=== PATIENT | male | born 1970 | race Caucasian/White ===

== ENCOUNTER 2023-02-13 10:14 | Outpatient (CLI) | payer OTHER, BC, MEDICAID, SELFPAY ==
[2023-02-13 11:06] LABS: Basophils # 0.1 10^3/uL (0.0-0.1); Basophils % 1.2 %; Eosinophils # 0.1 10^3/uL (0.0-0.8); Hematocrit 47.4 % (37-53); Lymphocytes # 2.2 10^3/uL (0.8-4.8); Lymphocytes % 20.2 %; Mean Corpuscular HGB Conc 31.9 g/dL (30-55); Mean Corpuscular Hemoglobin 24.6 pg (27-33); Mean Corpuscular Volume 77.1 fl (82-101); Mean Platelet Volume 9.2 fL (7.4-10.4); Monocytes # 0.9 10^3/uL (0.2-0.9); Monocytes % 7.8 %; Neutrophils # 7.57 10^3/uL (1.8-7.7); Neutrophils % 68.5 %; Nucleated Red Blood Cells % 0 %; Platelet Count 303 10^3/cmm (157-399); Red Blood Count 6.15 10^6/uL (3.85-5.65); Red Cell Distribution Width 14.5 % (12.1-15.1); White Blood Count 11.04 10^3/uL (3.29-11.43)
[2023-02-13 12:12] LABS: Alanine Aminotransferase 29 U/L (0-41); Albumin Level 4.4 g/dL (3.5-5.2); Alkaline Phosphatase 109 U/L (40-130); Anion Gap 15.2 (5-19); Aspartate Amino Transferase 18 U/L (0-40); Blood Urea Nitrogen 14 mg/dL (6-20); Calcium 9.4 mg/dL (8.5-10.5); Carbon Dioxide 26 mmol/L (22-29); Chloride 96 mmol/L (98-107); Globulin 2.3 g/dL (1.3-4.6); Glomerular Filtration Rate 119.4 mL/min (90-130); Glucose 287 mg/dL (65-115); Osmolality Calculated 287 mOsm/kg (285-295); Potassium 4.2 mmol/L (3.5-5.1); Sodium 133 mmol/L (136-145); Thyroid Stimulating Hormone 1.69 uIU/mL (0.27-4.20); Total Bilirubin 0.4 mg/dL (0.15-1.2); Total Protein 6.7 g/dL (6.6-8.7); Vitamin B12 899 pg/mL (232-1245)
[2023-02-13 12:14] LABS: Folate Level < 20.0 ng/mL (4.5-32.2)
== END 2023-02-13 10:15 | disposition home or self-care (01) ==
PROVIDERS: PCP Family Medicine; Visit Provider Nurse Practitioner Family
DX: K14.5 Plicated tongue (principal); R53.83 Other fatigue; E78.2 Mixed hyperlipidemia
CPT/HCPCS: 36415; 80053; 82607; 82746; 84443; 85025

== ENCOUNTER 2023-02-15 12:46 | Emergency (ER) | payer OTHER, BC, MEDICAID, SELFPAY ==
[2023-02-15 12:52] VITALS: BP 175/99; PULSE 68; RESP 16; TEMP 36.6; O2SAT 99; BMI 39.3
[2023-02-15 12:55] VITALS: BP 151/89; PULSE 63; O2SAT 97
--- NOTE | 2023-02-15 12:59 | ED_ITS ---
HPI - Recheck/Abnormal Lab/Rx General: Chief Complaint: Recheck/Abnormal Lab/Rx Stated Complaint: high bs, blurred vision, weakness Time Seen by Provider: 02/15/23 12:51 History of Present Illness: Patient is a 52-year-old male that presents to the emergency department with complaints of hyperglycemia. Patient states he has been tracking his blood sugar over the last couple weeks due to hyperglycemia. At home his sugars have been in the 300s. Patient has follow-up scheduled on 02/23 but noted increased hyperglycemia with dizziness and intermittently blurred vision. No blurred vision at this time. Blood sugar was 263 on arrival Review of Systems General: Reports: 10 or more systems reviewed and unremarkable except in HPI and below Const: Denies: fever(s), chills, change in appetite, change in weight, fatigue or malaise Eyes: Reports: blurry vision; Denies: change in vision, eye discomfort, eye discharge or eye redness ENMT: Denies: throat pain, enlarged tonsils, odynophagia, hoarseness, ear or mastoid pain, ear discharge, change in hearing, tinnitus, nasal discharge, nasal congestion, post nasal drip or sinus pain Card: Denies: chest pain, palpitations, irregular heart rhythm, edema, dyspnea on exertion, orthopnea or leg pain with exertion Resp: Denies: dyspnea, productive cough, non-productive cough, wheezing, stridor or chest congestion GI: Denies: abdominal pain, nausea, vomiting, dysphagia, diarrhea, constipation, bloating, GI cramping or hematochezia : Denies: flank pain, dysuria, urinary frequency, urinary urgency, urinary hesitancy, oliguria or hematuria Musc: Denies: neck pain, back pain, extremity pain, joint pain, joint swelling, joint redness, joint warmth or muscle weakness Skin/Breast: Denies: rash, pruritus, erythema, photosensitivity or new lesions Neuro: Denies: headache(s), numbness in extremities, weakness in extremities, sensory changes, lack of coordination, difficulty walking, frequent falls, dizziness, confusion, Slurred speech present, difficulty communicating thoughts, seizure-like activity or involuntary movements Endo: Denies: polyuria, polydipsia or tired all the time [place]/Lymph: Denies: easy bruising or easy bleeding Physical Exam Const: COMMON NORMALS: no acute distress, patient oriented x3 and alert GENERAL APPEARANCE: cooperative ORIENTATION/CONSCIOUSNESS: Yes awake, Yes oriented to person, Yes oriented to place and Yes oriented to time HENMT: COMMON NORMALS: normocephalic and atraumatic HEAD & SCALP: normocephalic and atraumatic FACE & SINUS: normal facial exam MOUTH: Norm al oral and palatal mucosa present THROAT: posterior oropharynx normal Eye: COMMON NORMALS: Equal, round and reactive pupils present, EOMs intact bilaterally, conjunctivae normal and no scleral icterus GENERAL EYE: appearance normal, both eyes and all related structures ALIGNMENT: Yes alignment normal PERIORBITAL: periorbital findings normal CONJUNCTIVA: Yes conjunctivae normal PUPIL: Yes Equal, round and reactive pupils present Neck/C-Spine: COMMON NORMALS: full ROM GENERAL: Yes normal visual insp ection Lymph: LYMPHATIC: no lymphadenopathy noted Chest: COMMONS NORMALS: normal inspection of the chest Breast/axilla inspection: Yes no chest deformity, asymmetry, normal contours, no nodules, masses, tenderness Resp: COMMON NORMALS: normal respiratory effort, No retractions, No use of accessory muscles and clear to auscultation bilaterally EFFORT & INSPECTION: Yes able to speak in complete sentences and Yes symmetric chest movement AUSCULTATION: clear to auscultation bilaterally Cardio: COMMON NORMALS: regular rate, regular rhythm and Peripheral pulses 2+ throughout RATE: regular rate RHYTHM: regular rhythm PERIPHERAL PULSES: Peripheral pulses 2+ throughout GI: COMMON NORMALS: Normal to inspection, nondistended, normoactive bowel sounds present, Soft to palpation, non-tender and No hepatosplenomegaly present INSPECTION: Yes normal to inspection AUSCULTATION: Yes normoactive bowel sounds PALPATION: Yes Soft to palpation and Yes No hepatosplenomegaly present RECTAL EXAM: Yes deferred Extremity: COMMON NORMALS: normal to inspection GENERAL: Yes normal exam except as noted Neuro: COMMON NORMALS: patient oriented x3 SENSORIUM/ORIENTATION: Yes alert, Yes oriented to person, Yes oriented to place and Yes oriented to time CRANIAL NERVES: Yes CN normal except as noted Psych: COMMON NORMALS: mental status grossly normal, Normal thought process present, cooperative, activity/motor behavior normal, denies homicidal ideation and denies suicidal ideation THOUGHT PROCESS: Normal thought process present Skin: COMMON NORMALS: no rashes or lesions noted, no wounds and turgor normal GENERAL SKIN EXAM: no rashes or lesions noted and turgor normal Course 2 Vital Signs: Vital signs: Vital Signs Temperature 97.9 F 02/15/23 12:52 Pulse Rate 63 02/15/23 12:55 Respiratory Rate 16 02/15/23 12:52 Blood Pressure 151/89 02/15/23 12:55 Pulse Oximetry 97 02/15/23 12:55 Oxygen Delivery Me thod Room Air 02/15/23 12:55 MDM - Recheck/Abnormal Lab/Rx Medical Decision Making Patient was evaluated in the emergency department [place] due to hyperglycemia and intermittent blurred vision. Differential diagnosis includes hypoglycemia, dehydration, DKA. Patient underwent CT head for the 4-day intermittent history of blurred vision. No acut e findings. Patient underwent laboratory evaluation that included CBC, CMP and urinalysis. No ketones serum or in his urine. No leukocytosis, anemias, electrolyte abnormalities and glucose was 190. Advised patient to continue his current efforts to manage his blood sugar from lifestyle modifications. He needs to follow-up with his primary care doctor on the as planned Patient will be discharged after normal saline is infused. All questions answered Lab Data 02/15/23 13:10 02/15/23 13:[address] 02/15/23 13:[address]: 1[address] No CT evidence of acute intracranial pathology. 2. Additional findings, as above. Laboratory Results WBC 10.47 10^3/uL (3.29-11.43) 02/15/23 13:10 RBC 5.82 10^6/uL (3.85-5.65) H 02/15/23 13:10 Hgb 14.40 g/dL (11.27-16.99) 02/15/23 13:10 Hct 45.2 % (37-53) 02/15/23 13:10 MCV 77.7 fl (82-101) L 02/15/23 13:10 MCH 24.7 pg (27-33) L 02/15/23 13:10 MCHC 31.9 g/dL (30-55) 02/15/23 13:10 RDW 14.6 % (12.1-15.1) 02/15/23 13:10 Plt Count 296 10^3/cmm (157-399) 02/15/23 13:10 MPV 9.1 fL (7.4-10.4) 02/15/23 13:10 Neut % (Auto) 67.7 % 02/15/23 13:10 Lymph % (Auto) 22.8 % 02/15/23 13:10 [place] % (Auto) 6.7 % 02/15/23 13:10 Eos % (Auto) 1.1 % 02/15/23 13:10 Baso % (Auto) 0.8 % 02/15/23 13:10 Neut # (Auto) 7.09 10^3/uL (1.8-7.7) 02/15/23 13:10 Lymph # (Auto) 2.4 10^3/uL (0.8-4.8) 02/15/23 13:10 [place] # (Auto) 0.7 10^3/uL (0.2-0.9) 02/15/23 13:10 Eos # (Auto) 0.1 10^3/uL (0.0-0.8) 02/15/23 13:10 Baso # (Auto) 0.1 10^3/uL (0.0-0.1) 02/15/23 13:10 Nucleated RBC % (auto) 0 % 02/15/23 13:10 Nucleated RBCs # 0.0 /100WBC 02/15/23 13:10 Sodium 138 mmol/L (136-145) 02/15/23 13:10 Potassium 4.0 mmol/L (3.5-5.1) 02/15/23 13:10 Chloride 101 mmol/L (98-107) 02/15/23 13:10 Carbon Dioxide 28 mmol/L (22-29) 02/15/23 13:10 Anion Gap 13.0 (5-19) 02/15/23 13:10 BUN 13 mg/dL (6-20) 02/15/23 13:10 Creatinine 0.8 mg/dL (0.7-1.2) 02/15/23 13:10 GFR Calculation 102.3 mL/min (90-130) 02/15/23 13:10 Glucose 190 mg/dL (65-115) H 02/15/23 13:10 POC Glucose 262 mg/dL (70-110) H 02/15/23 12:58 Calculated Osmolality 291 mOsm/kg (285-295) 02/15/23 13:10 Calcium 9.3 mg/dL (8.5-10.5) 02/15/23 13:10 Total Bilirubin 0.4 mg/dL (0.15-1.2) 02/15/23 13:10 AST 20 U/L (0-40) 02/15/23 13:10 ALT 28 U/L (0-41) 02/15/23 13:10 Alkaline Phosphatase 108 U/L (40-130) 02/15/23 13:10 Total Protein 6.8 g/dL (6.6-8.7) 02/15/23 13:10 Albumin 4.2 g/dL (3.5-5.2) 02/15/23 13:10 Globulin 2.6 g/dL (1.3-4.6) 02/15/23 13:10 Urine Color Colorless (Yellow) 02/15/23 13:22 Urine Appearance Clear (CLEAR) 02/15/23 13:22 Urine pH 6 (5-7) 02/15/23 13:22 Ur Specific [place] 1.005 (1.005-1.030) 02/15/23 13:22 Urine Protein Neg (Negative) 02/15/23 13:22 Urine Glucose (UA) 1+ (Normal) H 02/15/23 13:22 Urine Ketones Negative (Negative) 02/15/23 13:22 Urine Blood Neg (Negative) 02/15/23 13:22 Urine Nitrate Negative (Negative) 02/15/23 13:22 Urine Bilirubin Neg (Negative) 02/15/23 13:22 Urine Urobilinogen Norm mg/dL (Negative) 02/15/23 13:22 Ur Leukocyte Esterase Negative (Negative) 02/15/23 13:22 Serum Ketones Negative (Negative) 02/15/23 13:10 All radiology interpretation(s) finalized by discharge Discharge Plan Discharge Patient Disposition: Home Clinical Impression: Acute hyperglycemia Condition: Stable Prescriptions: No Action lamotrigine 200 mg tablet 200 mg PO dextroamphetamine-amphetamine 25 mg capsule,extended release 24hr 25 mg PO citalopram 40 mg tablet 40 mg PO omeprazole 20 mg capsule,delayed release(DR/EC) 20 mg PO DAILY Discharge Orders: Discharge ED (Routine); Ordered 02/15/23 Ordered By: Luz Cartagena McTeer Referrals: Leigha Simpson DO [Primary Care Provider] - Discharge Diet: Advance as tolerated Discharge Activity: Resume usual activity Patient Instructions: Diabetic Ketoacidosis (DC), Diabetic Hyperglycemia (ED), Mediterranean Diet (DC), Diabetes and Exercise (ED), Pain Management Activity Restrictions/Additional Instructions: Please return to the emergency department for new concerning or worsening Keep all follow-up appointments Coding Level of Care Code ED 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
[2023-02-15 13:01] LABS: Glucose Point of Care 262 mg/dL (70-110)
--- NOTE | 2023-02-15 13:01 | CTR_ITS ---
PROCEDURE INFORMATION: Exam: CT Head Without Contrast Exam date and time: 02/15/2023 1:37 PM Age: 52 years old Clinical indication: Other: Blurred vision TECHNIQUE: Imaging protocol: Computed tomography of the head without contrast. Axial, coronal and sagittal reformatted images were created and reviewed. Radiation optimization: All CT scans at this facility use at least one of these dose optimization techniques: automated exposure control; mA and/or kV adjustment per patient size (includes targeted exams where dose is matched to clinical indication); or iterative reconstruction. REPORTING DATA: Count of CT and Cardiac NM exams in prior 12 months: This patient has received 0 known CTs and 0 known cardiac nuclear medicine studies in the 12 months prior to the current study. COMPARISON: No relevant prior studies available. RADIATION DOSE METRICS: Total DLP (mGy-cm): 1052.18 FINDINGS: Brain: Subtle, patchy areas of hypoattenuation in the periventricular and subcortical white matter, nonspecific but suggestive of mild chronic small vessel ischemic disease. No CT evidence of acute intracranial hemorrhage or acute territorial infarction. No significant mass effect or midline shift. Basal cisterns patent. Cerebral ventricles: Prominence of the cortical sulci, cisterns and ventricular system, consistent with cerebral and cerebellar volume loss. Paranasal sinuses: Unremarkable. No fluid levels. Mastoid air cells: Grossly unremarkable. Bones/joints: No acute osseous abnormality. Soft tissues: Grossly unremarkable. CT/CT head wo con* [id number] IMPRESSION: 1. No CT evidence of acute intracranial pathology. 2. Additional findings, as above.
[2023-02-15 13:30] LABS: Add Urine Microscopic? NO; Charge for UA Resulting for Rev
[2023-02-15] MEDS: sodium chloride 0.9% 1,000 ML 999 ML IV ×2 (13:35→14:26)
[2023-02-15 13:36] LABS: Bilirubin Urine Neg (Negative); Blood Urine Neg (Negative); Glucose Urine UA 1+ (Normal); Ketones Urine Negative (Negative); Leukocyte Esterase Urine Negative (Negative); Nitrate Urine Negative (Negative); Protein Urine Neg (Negative); Specific Gravity, Urine 1.005 (1.005-1.030); Urine Appearance Clear (CLEAR); Urine Color Colorless (Yellow); Urobilinogen Urine Norm (Negative); pH Urine 6 (5-7)
[2023-02-15 13:55] LABS: Basophils # 0.1 10^3/uL (0.0-0.1); Basophils % 0.8 %; Eosinophils # 0.1 10^3/uL (0.0-0.8); Eosinophils % 1.1 %; Hematocrit 45.2 % (37-53); Lymphocytes # 2.4 10^3/uL (0.8-4.8); Lymphocytes % 22.8 %; Mean Corpuscular HGB Conc 31.9 g/dL (30-55); Mean Corpuscular Hemoglobin 24.7 pg (27-33); Mean Corpuscular Volume 77.7 fl (82-101); Mean Platelet Volume 9.1 fL (7.4-10.4); Monocytes # 0.7 10^3/uL (0.2-0.9); Monocytes % 6.7 %; Neutrophils # 7.09 10^3/uL (1.8-7.7); Neutrophils % 67.7 %; Nucleated Red Blood Cells % 0 %; Platelet Count 296 10^3/cmm (157-399); Red Blood Count 5.82 10^6/uL (3.85-5.65); Red Cell Distribution Width 14.6 % (12.1-15.1); White Blood Count 10.47 10^3/uL (3.29-11.43)
[2023-02-15 14:17] LABS: Ketone (Acetest) Serum Negative (Negative)
[2023-02-15 14:22] LABS: Alanine Aminotransferase 28 U/L (0-41); Albumin Level 4.2 g/dL (3.5-5.2); Alkaline Phosphatase 108 U/L (40-130); Aspartate Amino Transferase 20 U/L (0-40); Blood Urea Nitrogen 13 mg/dL (6-20); Calcium 9.3 mg/dL (8.5-10.5); Carbon Dioxide 28 mmol/L (22-29); Chloride 101 mmol/L (98-107); Globulin 2.6 g/dL (1.3-4.6); Glomerular Filtration Rate 102.3 mL/min (90-130); Glucose 190 mg/dL (65-115); Osmolality Calculated 291 mOsm/kg (285-295); Sodium 138 mmol/L (136-145); Total Bilirubin 0.4 mg/dL (0.15-1.2); Total Protein 6.8 g/dL (6.6-8.7)
[2023-02-15 16:10] VITALS: PULSE 66; O2SAT 100
== END 2023-02-15 16:11 | disposition home or self-care (01) ==
PROVIDERS: Emergency Provider Nurse Practitioner; PCP Family Medicine
DX: R73.9 Hyperglycemia, unspecified (principal)
CPT/HCPCS: 36416; 70450; 80053; 81000; 81003; 82009; 82962; 85025; 96360; 96361; 99285; J7030

== ENCOUNTER 2024-05-22 17:16 | Emergency (ER) | payer BC, MEDICAID, SELFPAY ==
[2024-05-22 17:22] VITALS: BP 203/96; PULSE 82; RESP 17; TEMP 36.6; O2SAT 97; BMI 41.5
--- NOTE | 2024-05-22 17:24 | XRR_ITS ---
PROCEDURE INFORMATION: Exam: XR Left Finger(s) Exam date and time: 05/22/2024 5:34 PM Age: 53 years old Clinical indication: Injury or trauma; Other: Tip of left second finger cut off with hatchet; Laceration; Index finger; Injury details: PT states he was cutting a log with a hatchet and cut his finger. PT states it cut about a quarter of an inch off. PT has end of finger cut off in triage. Bleeding is not controlled at this time. Pressure dressing applied. TECHNIQUE: Imaging protocol: Radiologic exam of the left fingers. Views: Minimum 2 views. COMPARISON: No relevant prior studies available. FINDINGS: Bones/joints: Bandage material and soft tissue swelling is seen about the 2nd distal phalanx. Soft tissues: See Bones/joints finding. XR/XR finger LT min 2V [id number] IMPRESSION: Negative for fracture or dislocation.
--- NOTE | 2024-05-22 17:36 | W.ED.WOUNDLC ---
HPI - Wound/Laceration General: Chief Complaint: Wound/Laceration Stated Complaint: lft hand injury - cut tip of fingers Time Seen by Provider: 05/22/24 17:32 History of Present Illness: Patient presents to the ER with complaints of cutting the tip of his left hand second digit off with a hatchet while he was splitting wood. Bleeding is somewhat controlled. Patient is not on any blood thinner. Patient is hypertensive at this time. Related Data Home Medications Medication Instructions Recorded Confirmed citalopram 40 mg tablet 40 mg PO 02/15/23 11/21/23 dextroamphetamine-amphetamine ER 25 mg PO 02/15/23 11/21/23 25 mg 24hr capsule,extend release lamotrigine 200 mg tablet 200 mg PO 02/15/23 11/21/23 omeprazole 20 mg capsule,delayed 20 mg PO DAILY 02/15/23 11/21/23 release metformin 500 mg tablet,extended mg PO 11/21/23 11/21/23 release 24 hr Previous Rx's Medication Instructions Recorded famotidine 40 mg tablet (Pepcid) 40 mg PO BID #20 tabs 11/21/23 prednisone 20 mg tablet 60 mg (3 x 20 mg) PO DAILY 5 days 11/21/23 #15 tabs hydrocodone 5 mg-acetaminophen 325 1 tab PO Q6H PRN pain #14 tabs 05/22/24 mg tablet Allergies Allergy/AdvReac Type Severity Reaction Status Date / Time No Known Allergies Allergy Verified 11/21/23 11:05 Review of Systems General: Reports: 10 or more systems reviewed and unremarkable except in HPI and below Physical Exam Const: COMMON NORMALS: no acute distress, average body habitus, patient oriented x3, no limitations, healthy appearing, alert and well nourished HENMT: COMMON NORMALS: normocephalic, atraumatic, hearing grossly normal bilaterally, external ears normal, Normal external nose present and moist oral mucous membranes HEAD & SCALP: normocephalic and atraumatic NOSE: Normal external nose present EXTERNAL EAR: Yes external ears normal Neck/C-Spine: COMMON NORMALS: full ROM, no lymphadenopathy, supple, no meningeal signs, no JVD and Thyroid normal THYROID: Thyroid normal Chest: COMMONS NORMALS: normal inspection of the chest and normal palpation of entire chest wall Resp: COMMON NORMALS: normal respiratory effort, No retractions, No use of accessory muscles and clear to auscultation bilaterally AUSCULTATION: clear to auscultation bilaterally Cardio: COMMON NORMALS: no JVD, regular rate, regular rhythm, S1 normal heart sound present, S2 normal heart sound present, No gallops present (Cardio), No clicks present (Cardio), No murmurs present (Cardio) and No rub (Cardio) RATE: regular rate RHYTHM: regular rhythm HEART SOUNDS: S1 normal heart sound present and S2 normal heart sound present GI: COMMON NORMALS: Normal to inspection, nondistended, normoactive bowel sounds present, Soft to palpation, non-tender, No hepatosplenomegaly present and no masses PALPATION: Yes Soft to palpation and Yes No hepatosplenomegaly present Extremity: NARRATIVE EXTREMITY EXAM: Tip of the left second digit avulsed clean. Bleeding is controlled with pressure dressing. Ring block was instituted for pain control. Neuro: COMMON NORMALS: patient oriented x3 SENSORIUM/ORIENTATION: Yes alert MENINGEAL SIGNS: Yes no meningeal signs Course Vital Signs: Vital signs: Vital Signs Temperature 97.8 F 05/22/24 17:22 Pulse Rate 72 05/22/24 18:11 Respiratory Rate 17 05/22/24 17:22 Blood Pressure 163/85 05/22/24 18:11 Pulse Oximetry 98 05/22/24 18:11 Oxygen Delivery Me thod Room Air 05/22/24 18:11 MDM - Wound/Laceration Medical Decision Making 3 [facility] preliminarily negative except for fingertip amputation, bleeding was controlled with pressure dressing, pain was controlled with ring block, patient be discharged from the ER. We will send some hydrocodone home with patient. Patient was given 20 mg of hydralazine for his blood pressure in ER. Medical Records I reviewed the patient's medical records. Lab Data I reviewed the patient's lab results. All radiology interpretation(s) finalized by discharge Discharge Plan Discharge Patient Disposition: Home Clinical Impression: Traumatic amputation of fingertip Qualifiers: Encounter type: initial encounter Qualified Code(s): S68.119A - Complete traumatic metacarpophalangeal amputation of unspecified finger, initial encounter Condition: Stable Prescriptions: New hydrocodone-acetaminophen 5-325 mg tablet 1 tab PO Q6H PRN (Reason: pain) Qty: 14 0RF No Action lamotrigine 200 mg tablet 200 mg PO dextroamphetamine-amphetamine 25 mg capsule,extended release 24hr 25 mg PO citalopram 40 mg tablet 40 mg PO omeprazole 20 mg capsule,delayed release(DR/EC) 20 mg PO DAILY metformin 500 mg tablet extended release 24 hr PO prednisone 20 mg tablet 60 mg PO DAILY 5 Days Qty: 15 0RF famotidine [Pepcid] 40 mg tablet 40 mg PO BID Qty: 20 0RF Discharge Orders: Discharge ED (Routine); Ordered 05/22/24 Ordered By: Jak Joiner Referrals: Leigha Simpson DO [Primary Care Provider] - 1 week Patient Instructions: Opioid Safety, Pain Management, Finger Amputation (ED) Activity Restrictions/Additional Instructions: Pain meds has been sent to your pharmacy. Please get your prescription filled and take it as directed. Please change the dressing and bandage as needed as often as required. Please keep the area clean and dry. Please follow-up with your failure practitioner in the next 7 days for further evaluation and treatment. 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
[2024-05-22 17:47] VITALS: BP 204/102
[2024-05-22] MEDS: cloNIDine 0.1 mg Tablet 0.2 MG PO (17:47)
[2024-05-22 18:11] VITALS: BP 163/85; PULSE 72; O2SAT 98
[2024-05-22] MEDS: HYDROcodone-acetaminophen 5-325 mg Tablet 1 TAB PO (19:15)
[2024-05-22 19:30] VITALS: BP 175/105; PULSE 68; RESP 18; O2SAT 100
[2024-05-22 19:43] VITALS: BP 164/107; PULSE 72; O2SAT 100
== END 2024-05-22 19:45 | disposition home or self-care (01) ==
PROVIDERS: Emergency Provider Emergency Medicine; PCP Family Medicine
DX: S68.119A Complete traumatic metacarpophalangeal amputation of unspecified finger, initial encounter (principal); W26.0XXA Contact with knife, initial encounter
CPT/HCPCS: 73140; 99283; A6446